=== PATIENT | female | born 1960 | race Caucasian/White ===

== ENCOUNTER → 2023-02-12 | Outpatient (CLI) | payer BC, SELFPAY ==
--- NOTE | 2023-02-12 06:48 | MRI_ITS ---
INDICATION: diplopia with headaches, neck pain, pain entire head EXAMINATION: MRI - MR Brain WO/W Contrast TECHNIQUE: Multiplanar and multisequence MR images of the brain were obtained without and with gadolinium. IV Contrast Dosage and Agent: 15 cc Clariscan. COMPARISON: None. FINDINGS: BRAIN AND EXTRA-AXIAL SPACES: No intracranial mass, mass effect, or midline shift. No enhancing lesion. No hemorrhage, territorial infarct or acute ischemia. Limited foci of T2 signal hyperintensity in the white matter consistent with microvascular ischemia. Ventricles are normal in size. Basal cisterns are unremarkable. SELLA: Pituitary gland is normal in height. AUDITORY SYSTEM: Unremarkable. BONES/JOINTS: Unremarkable. SINUSES: Unremarkable as visualized. Clear. MASTOID AIR CELLS: Unremarkable as visualized. Clear. ORBITS: Unremarkable as visualized. VASCULATURE: Normal flow voids in the major intracranial circulation. MRI/Brain W/WO Contrast IMPRESSION: No acute findings. Trace microvascular ischemic changes. Electronically Signed: Nichole Kilgore MD at 20:31 EDT Reading Location ID and State: [id number] / Tel , Service support ,
== END | disposition home or self-care (01) ==
LOC: MRI 06:47
PROVIDERS: PCP Internal Medicine; Referring Provider Internal Medicine; Visit Provider Internal Medicine
DX: H53.2 Diplopia (principal)
CPT/HCPCS: 70553; A9575

== ENCOUNTER → 2023-06-08 | Outpatient (CLI) | payer BC, SELFPAY ==
--- NOTE | 2023-06-08 13:22 | CT_ITS ---
STUDY: CT BRAIN WITH AND WITHOUT CONTRAST REASON FOR EXAM: Female, 62 years old. Migraine, tinnitus tiffanie -- migraine, tinnitus tiffanie RADIATION DOSAGE (If Supplied By Facility): CTDIvol = ( 44.99 ) mGy, DLP = ( 1547.23 ) mGycm TECHNIQUE: Transaxial CT imaging of the brain was performed pre and post contrast administration. The examination was performed with intravenous administration of IV 50mL Isovue-370. Individualized dose optimization techniques were used for this CT. COMPARISON: None. FINDINGS: Normal soft tissue structures. Normal calvarium. Normal size ventricles and extra-axial spaces for the patient''s age. Normal white matter tracts of the cerebral hemispheres. Normal basal ganglia and thalami. Normal brainstem. Normal cerebellum. There is no intracranial hemorrhage. There are no findings of an acute ischemic infarction. Normal visualized paranasal sinuses. CT/Brain/Head W/WO Contrast IMPRESSION: Normal unenhanced and enhanced CT scan of the brain. Electronically Signed: Andry Seymour MD at 14:04 EST ,
== END | disposition home or self-care (01) ==
LOC: CT 13:20
PROVIDERS: PCP Internal Medicine; Referring Provider Internal Medicine; Visit Provider Internal Medicine
DX: H93.13 Tinnitus, bilateral (principal)
CPT/HCPCS: 70470; Q9967

== ENCOUNTER → 2023-06-28 | Outpatient (CLI) | payer BC, SELFPAY ==
--- NOTE | 2023-06-28 10:21 | BD_ITS ---
STUDY: DUAL ENERGY X-RAY ABSORPTIOMETRY / DXA REASON FOR EXAM: Female, 62 years old. Z780 TECHNIQUE: Bone Mineral Density (BMD) measurements of lumbar spine and bilateral hips were obtained. COMPARISON: None. FINDINGS: Lumbar Spine (L1-L4): g/cm2 (0.850) / T-score (-1.2) / Z-score (0.2) Findings are suggestive of osteopenia with a low fracture risk. Left Femur Total: g/cm2 (0.851) / T-score (-0.7) / Z-score (0.2) Left Femoral Neck: g/cm2 (0.704) / T-score (-1.3) / Z-score (0.0) Right Femur Total: g/cm2 (0.677) / T-score (-1.5) / Z-score (-0.2) Right Femoral Neck: g/cm2 (0.819) / T-score (-1.0) / Z-score (0.0) BD/Dexa Bone Density Study IMPRESSION: The patient is considered osteopenic as outlined below according to World Curtis Organization (WHO) criteria with a low fracture risk. Reference Information: The T-score is the number of standard deviations above or below the standard which is normal for young adults at their peak bone mineral density. The World Health Organization (WHO) interprets the T-scores as follows: Above -1 Normal bone density Between -1 and -2.5 Osteopenia Equal to / or below -2.5 Osteoporosis As a practical clinical guideline, osteopenia may be graded as follows: Mild -1 through -1.5 Moderate -1.6 through -2.0 Severe -2.1 through -2.4 The Z-score is the number of standard deviations above or below age-matched controls. A Z-score of less than -1.5 would be considered abnormal. References: 1. NIH Osteoporosis and Related Bone Diseases www osteo.org 2. International Society for Clinical Densitometry www iscd.org 3. National Osteoporosis Foundation www nof.org Electronically Signed: Andry Seymour MD at 14:24 EST ,
== END | disposition home or self-care (01) ==
LOC: OPBD 10:04
PROVIDERS: PCP Internal Medicine; Referring Provider Internal Medicine; Visit Provider Internal Medicine
DX: Z78.0 Asymptomatic menopausal state (principal)
CPT/HCPCS: 77080

== ENCOUNTER → 2023-09-20 | Outpatient (CLI) | payer BC, SELFPAY ==
--- OUTSIDE RECORDS SUMMARY | 2023-09-10 07:01 | XMS RPT_ITS | CCD ---
Author Name Unknown Address [address] [place] [address] Organization [facility] Care Team Providers Care Chip Washer Name Role Phone NO FAMILY PHYSICIAN, 837 Unavailable Unavail able FREEDMAN, RIC Unavailable Unavailable NO FAMILY PHYSICIAN, 837 Unavailable Unavail able FREEDMAN, RIC Unavailable Unavailable NO FAMILY PHYSICIAN, 837 Unavailable Unavail able FREEDMAN, RIC Unavailable Unavailable NO FAMILY PHYSICIAN, 837 Unavailable Unavail able FREEDMAN, RIC Unavailable Unavailable FREEDMAN, RIC Unavailable Unavailable FREEDMAN, RIC Unavailable Unavailable NO FAMILY PHYSICIAN, 837 Unavailable Unavail able Guille Albrecht Unavailable Unavailable Unavailable MD GUILLE ALBRECHT Primary Care Unavailable MD GUILLE ALBRECHT Referring Unavailable MD GUILLE ALBRECHT Attending Unavailable MD GUILLE ALBRECHT Referring Unavailable MD GUILLE ALBRECHT Attending Unavailable MD GUILLE ALBRECHT Primary Care Unavailable Bianca Alba MD Unavailable [phone] Slarb PAPER CUP HANDLE MACHINE OPERATOR, Melody Unavailable Unavailable Unavailable Unavailable Allergies Allergy Classification Reported Allergen(s) Allergy Type Date of Onset Reaction(s) Facility (2 sources) Penicillins; Translations: [Penicillins] Allergy to drug (finding) [facility] Work Phone: (3 sources) Penicillin Drug Allergy Vomiting [facility] Work Phone: Medications Completed/Discontinued Medications Medication Drug Class(es) Dates Sig (Normalized) Sig (Original) azithromycin 250 mg oral tablet (2 sources) Macrolide Antimicrobial Start: 10-19-2014 Azithromycin 250 MG Oral Tablet TAKE 2 TABLETS ON DAY 1 THEN TAKE 1 TABLET A DAY FOR 4 DAYS. Quantity: 6 Refills: 0 Ordered: 19-Oct-2014 Viola Finch MD Start : 19-Oct-2014 Active rimegepant 75 mg disintegrating oral tablet (3 sources) Start: 01-26-2023 take 1 tablet by mouth every other day Nurtec ODT 75 mg oral Tablet,disintegra ting 1 Tablet every other day;migraine headache for 0 days Quantity: 10 {Tablet} Refills: 0 Ordered: 26-Jan-2023 Bianca Alba MD Start : 26-Jan-2023 Active Problems Active Problems Problem Classification Problem Date Documented Da te Episodic/Chronic Blindness and vision defects (9 sources) Diplopia; Translations: [Diplopia] 01-29-2023 Episodic Headache; including migraine (6 sources) Migraine; Translations: [Migraine] 01-26-2023 Chronic Past or Other Problems Problem Classification Problem Date Documented Da te Episodic/Chronic Unclassified (3 sources) 1 live -vaginal 01-26-2023 Unclassified (3 sources) Results Test Name Value Interpretation Reference Range Facil ity Vital Signs Date Time Vital Sign Value Performing Clinician Facility 01-26-2023 07:10-0400 Body height 157.48 cm Melody Coffey LPN [facility] Work Phone: 01-26-2023 07:10-0400 Body mass index (BMI) [Ratio] 31.82 kg/m2 Melody Coffey LPN [facility] Work Phone: 01-26-2023 07:10-0400 Body surface area Derived from formula 1.8 m2 Melody Coffey LPN [facility] Work Phone: 01-26-2023 07:10-0400 Body temperature 97.7 [degF] Melody Coffey LPN [facility] Work Phone: Encounters Encounter Date Encounter Type Care Provider Facility Start: 01-30-2023 Review Bianca Singh Work Phone: [facility] Start: 01-29-2023 End: 01-29-2023 Annotation/Addendum Bianca Alba MD Work Phone: [facility] Start: 01-26-2023 End: 01-26-2023 Office outpatient visit 25 minutes Bianca Alba MD Work Phone: [facility] Start: 09-18-2022 ambulatory MD GUILLE Bryan ility:[id number] Start: 05-23-2022 Initial preventive medicine new patient 40-64yrs Guille Albrecht Work Phone: [facility] Work Phone: Start: 05-23-2022 ambulatory MD GUILLE ALBRECHT Fac ility:[id number] Start: 02-27-2018 End: 02-28-2018 Patient encounter RIC FREEDMAN Facility:[id number] Start: 02-26-2018 End: 02-27-2018 Patient encounter RIC FREEDMAN Facility:[facility] Start: 02-26-2018 End: 02-27-2018 Patient encounter RIC FREEDMAN Facility:[id number] Start: 09-24-2017 Patient encounter [id number] NO FAMIL Y PHYSICIAN Facility:[facility] Procedures Date Procedure Procedure Detail Performing Clinician Start: 02-12-2023 End: 02-12-2023 Brain W/WO Contrast Procedure Note: See Note; NOTES: [facility] Imaging Services [address] [place] [address] Brain W/WO Contrast MR#: [id number] Acct: [id number] Name: ORACIO SALCIDO Rep #: [id number] : 1960 F 62 From: Nichole bobby MD PCP: Dr. Bianca Alba MD Status: REG CLI Study: Brain W/WO Contrast Date of Exam: 02/12/23 Exam# [id number] Ordering Dr: Bianca Alba MD INDICATION: diplopia with headaches, neck pain, pain entire head EXAMINATION: MRI - MR Brain WO/W Contrast TECHNIQUE: Multiplanar and multisequence MR images of the brain were obtained without and with gadolinium. IV Contrast Dosage and Agent: 15 cc Clariscan. COMPARISON: None. FINDINGS: BRAIN AND EXTRA-AXIAL SPACES: No intracranial mass, mass effect, or midline shift. No enhancing lesion. No hemorrhage, territorial infarct or acute ischemia. Limited foci of T2 signal hyperintensity in the white matter consistent with microvascular ischemia. Ventricles are normal in size. Basal cisterns are unremarkable. SELLA: Pituitary gland is normal in height. AUDITORY SYSTEM: Unremarkable. BONES/JOINTS: Unremarkable. SINUSES: Unremarkable as visualized. Clear. MASTOID AIR CELLS: Unremarkable as visualized. Clear. ORBITS: Unremarkable as visualized. VASCULATURE: Normal flow voids in the major intracranial circulation. MRI/Brain W/WO Contrast IMPRESSION: No acute findings. Trace microvascular ischemic changes. Electronically Signed: Nichole Kilgore MD at 20:31 EDT Reading Location ID and State: [id number] / Tel , Service support , CC: Dr. Bianca Alba MD Cardiopulmonary Technologist: Signed Bianca Alba MD Work Phone: Arthrocent[facility] Of Ganglion Cyst Of Wrist Guille Albrecht Work Phone: Back Surgery Guille gaston Work Phone: Ganglion cyst Melody Alexx L PN Hand Incision Tendon Sheath Of A Finger Guille Albrecht Work Phone: Rectal Surgery Repai r Of Perirectal Fistula Guille Albrecht Work Phone: Spinal arthrodesis Melody Avina arb PAPER CUP HANDLE MACHINE OPERATOR Trigger finger x 2 Melody Avina arb PAPER CUP HANDLE MACHINE OPERATOR Plan of Treatment Date Care Activity Detail Author Start: 01-26-2023 Procedure Education Eprescribed prescriptions (G8553) [facility] Work Phone: [facility] Work Phone: [facility] Work Phone: Immunizations Immunization Date Immunization Notes Care Provider Fa cility 10-20-2021 tetanus toxoid, redu monique diphtheria toxoid, and acellular pertussis vaccine, adsorbed Guille Albrecht Work Phone: [facility] Work Phone: 03-26-2014 influenza, seasonal, injectable Guille Albrecht Work Phone: [facility] Work Phone: Payers Date Payer Category Payer Unknown [id number] [id number] 1960 Unknown [id number] Unknown Unknown [id number] Unknown [id number] Social History Date Type Detail Facility Former smoker Former smoker [facility] Work Phone: Progress note 10-06-2020 Note Date & Type Note Facility 10-06-2020 Note HNO ID: [id number] Author: Rita Arteaga Service: ? Author Type: Physician Type: Progress Notes Filed: 10/07/2020 9:32 AM Note Text: Follow-up Visit Patient: Oracio Salcido 81.3 kg (179 lb 3.2 oz) 157.5 cm (5' 2 ) Body mass index is 32.78 kg/m?. RMR can't be calculated - Weight unrecorded in last 120 days. Waist measurement: No waist measurement recorded. BP: 109/60 ALLERGIES Allergen Reactions - Beta Blockers [Beta* Other: See Comments Please avoid beta blockers while on allergy shots - Penicillins vomiting Current Outpatient Medications on File Prior to Visit Medication Sig - Ketoconazole (bulk) 7.5 mg (CPD) Fluconazole 7.5mg/ml 1 squirt to each nare twice per day - Jjsm-Clwy-XJ ([employer]) Take 1 capsule, 2 times daily with 4 oz or more of water. - Activated Charcoal ([employer]) 1capsules, 2 times daily - Estradiol (VAGIFEM) 10 mcg vaginal tablet Use 1 tablet vaginally two times a week. INTO LOWER 1/3 OF VAGINA TWICE A WEEK. - Homocysteine [place] (POPRAGEOUS for DrivenBI) Take 2 capsules by mouth daily with food. - One [place] (Pure Encapsulation) -- fish oil Take 2 capsules by mouth daily with food. - Choleast 600mg (Nilson) Take 2 capsules by mouth once daily. - albuterol sulfate 90 mcg/actuation aepb 2 puffs as needed when short of breath - Magnesium Glycinate (Pure Encapsulations) Take 4 capsules daily - Multi t/d 60 ct. (Pure Encapsulations) Take 1 capsule by mouth twice daily with meals. - Vitamin D [place] (ditlo) Take 1 capsule by mouth daily with food. No current facility-administered medications on file prior to visit. PAST MEDICAL HISTORY Diagnosis Date - Asthma albuterol as needed - BMI 31.0-31.9,adult 09/13/2017 - Mixed hyperlipidemia 09/13/2017 PAST SURGICAL HISTORY Procedure Laterality Date - HAND SURGERY HX trigger finger and ganglion cyst -- bilateral - SPINAL FUSION,ANT,EA ADNL LEVEL 04/11 Social History Tobacco Use - Smoking status: Former Smoker Quit date: 06/01/2010 Years since quittin.3 - Smokeless tobacco: Never Used Vaping Use - Vaping Use: Never used Substance Use Topics - Alcohol use: Yes - Drug use: Not Currently Functional Medicine Timeline PROMIS: PROMIS Scale T-Scores -- HIGHER SCORES BETTER PROMIS Global Health - (T-Scores - the mean of general population = 50. Five points is a clinically meaningful difference.) 03/12/2020 05/25/2020 10/04/2020 Physical T-Score 50.8 47.7 47.7 Mental T-Score 48.3 45.8 53.3 Depression Screening: PHQ-9 08/19/2019 12/17/2019 05/25/2020 Score 4 2 1 PHQ-9 Self Harm 08/19/2019 12/17/2019 05/25/2020 Question 9 Not at all Not at all Not at all PHQ-9 Self-Harm (Item 9) response options: 0 Not at all 1 Several days 2 More than half the days 3 Nearly every day PHQ-9 Levels: 0-4 Minimal depression 5-9 Mild depression 10-14 Moderate depression 15-19 Moderately severe depression 20-27 Severe depression Subjective: 10/05/2020 59 yo f with cholesterol, menopause, pansinusitis for follow up. She recently went to [place] and enjoyed it. She came home and quit her job. She feels wonderful!! She has started a new job working at [employer] in [place]. She loves her new job. The mold exposure was from work that she left so will repeat levels. She has chest pain at rest. When she first retired bp was high but now it is very well controlled at 110-120/70 ? Subjective: 03/17/2020 59 YO f with cholesterol, menopause, pansinusitis for follow up. She has used many things for her sinuses: begs, argentyn, EDTA/silver with jimbo and charcoal. With the EDTA/Silver she had a lot of drainage but still congestion continued but had severe rhinorrhea. She has developed vertigo with this. It is momentary and multiple times. 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 Subjective:? 03/17/20 59 yo f with cholesterol, menopause for follow up. ?She saw gyne and was place on vaginal estrogen and a low dose catapres for hot flashes every 2 hours at night and during the day they can vary b/c of AC. She use wellbutrin in the past and it gave her crazy dreams. ?No change with estrovera. ENT did not like FM and pt was offended by the visit. ??Was given cipro for the marcon's. ?It dried her up but did not stop the drainage. ?She has the EDTA from [place]. ?She did fall this summer and will be seeing ortho. ?She also has hip pain on her right side. ?She has pain with movement. Nasal congestion: bets, colloidal silver, lugols iodine has not helped. ? ? ? Subjective:? 12/24/19 59?yo f with cholesterol, menopause for follow up. 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 ?She had to do 10 hour days with one dayoff and (more content not included)... 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 Here for Mammogram order and breast exam.Oracio is a 61 year old female presenting today as new patient to establish care.-Feels well, no specific complaints or concerns-Requests order for a mammogram.-Was attending functional medicine at [facility] but her insurance no longer covers that.-She has not seen a primary physician in 7 years, last one was Dr. 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 Here for Mammogram order and breast exam.Oracio is a 61 year old female presenting today as new patient to establish care.-Feels well, no specific complaints or concerns-Requests order for a mammogram.-Was attending functional medicine at [facility] but her insurance no longer covers that.-She has not seen a primary physician in 7 years, last one was Dr. Finch.-Last had blood work done in September 2019.-Has lost 15 lbs since 03/09/22.-FH: Mother with macular degeneration.had recent colonoscopy and EGDh/o Souza's esophagus and hiatal hernia [facility] Work Phone: Instructions Note Date & Type Note Facility [facility] Work Phone: Instructions Note Date & Type Note Facility [facility] Work Phone: Instructions Note Date & Type Note Facility [facility] Work Phone: Summary Purpose Family History Unknown Family Member Name Dates Details Family history of malignant neoplasm of breast: Mother(V16.3, Z80.3) Status:Active Family history of stroke: Gr andmother(V17.1, Z82.3) Status:Active Family history of colon canc er: Brother(V16.0, Z80.0) Status:Active Unknown Family Member Name Dates Details Family history of malignant neoplasm of breast: Mother(V16.3, Z80.3) Status:Active Family history of stroke: Gr andmother(V17.1, Z82.3) Status:Active Family history of colon canc er: Brother(V16.0, Z80.0) Status:Active Unknown Family Member Name Dates Details Maternal Grandfather Comments:macular degeneratio n Status:Active Maternal Grandmother Comments:pacemaker, macular degeneration Status:Active Mother Comments:IA, breast cancer, skin cancer Status:Active Unknown Family Member Name Dates Details Maternal Grandfather Comments:macular degeneratio n Status:Active Maternal Grandmother Comments:pacemaker, macular degeneration Status:Active Mother Comments:IA, breast cancer, skin cancer Status:Active Unknown Family Member Name Dates Details Maternal Grandfather Comments:macular degeneratio n Status:Active Maternal Grandmother Comments:pacemaker, macular degeneration Status:Active Mother Comments:IA, breast cancer, skin cancer Status:Active Advance Directives No Advanced Directives Records FoundNo Advanced Directives Records FoundNo Advanced Directives Records FoundNo Advanced Directives Records FoundNo Advanced Directives Records FoundNo Advanced Directives Records Found Additional Source Comments INFORMATION SOURCE (unrecogn ized section and content) DATE CREATED AUTHOR AUTHOR'S ORGANIZ ATION 03/03/2018 [facility] DATE CREATED AUTHOR AUTHOR'S ORGANIZ ATION 04/16/2020 [facility] DATE CREATED AUTHOR AUTHOR'S ORGANIZ ATION 08/05/2021 [facility] DATE CREATED AUTHOR AUTHOR'S ORGANIZ ATION 05/26/2022 [facility] DATE CREATED AUTHOR AUTHOR'S ORGANIZ ATION 10/01/2022 [facility] FOR RECORDS PERTAINING TO PATIENTS WHO ARE OR HAVE BEEN ENROLLED IN A CHEMICAL DEPENDENCY/SUBSTANCEABUSE PROGRAM, SOME INFORMATION MAY BE OMITTED. This clinical summary was aggregated from multiple sources. Caution should be exercised in using it in the provision of clinical care. This summary normalizes information from multiple sources, and as a consequence, information in this document may materially change the coding, format and clinical context of patient data. In addition, data may be omitted in some cases. CLINICAL DECISIONS SHOULD BE BASED ON THE PRIMARY CLINICAL RECORDS. [employer] provides no warranty or guarantee of the accuracy or completeness of information in this document.
--- OUTSIDE RECORDS SUMMARY | 2023-09-20 07:16 | XMS RPT_ITS | CCD ---
Author Name Unknown Address [address] [place] [address] Organization [facility] Care Team Providers Care Shank Cutter Name Role Phone NO FAMILY PHYSICIAN, [phone] [...] Primary Care Unavailable Bianca Alba MD Unavailable [phone] [place] PREMIX OPERATOR CONCENTRATE, Melody Unavailable Unavailable Unavailable Unavailable Allergies Allergy Classification Reported Allergen(s) Allergy Type Date of Onset Reaction(s) Facility (2 sources) Penicillins; Translations: [Penicillins] Allergy to drug (finding) [facility] Work Phone: (3 sources) Penicillin [...] Medicine Start: 09-18-2022 ambulatory MD GUILLE Bryan ility:[id number] Start: 05-23-2022 Initial preventive medicine new patient 40-64yrs Guille Albrecht Work Phone: [facility] Work Phone: Start: 05-23-2022 ambulatory MD GUILLE ALBRECHT Fac ility:[id number] Start: 02-27-2018 End: 02-28-2018 Patient encounter RIC FREEDMAN Facility:[id number] Start: 02-26-2018 End: 02-27-2018 Patient encounter RIC FREEDMAN Facility:[facility] Start: 02-26-2018 End: 02-27-2018 Patient encounter RIC FREEDMAN Facility:[id number] Start: 09-24-2017 Patient encounter [id number] NO FAMIL Y PHYSICIAN Facility:[facility] Procedures Date Procedure Procedure Detail Performing Clinician Start: 02-12-2023 End: 02-12-2023 Brain W/WO Contrast Procedure Note: See Note; NOTES: [facility] Imaging Services [address] [place] [address] Brain W/WO Contrast MR#: [id number] Acct: [id number] Name: ORACIO SALCIDO Rep #: [id number] : 1960 F 62 From: Nichole bobby MD PCP: Dr. Bianca Alba MD Status: REG CLI Study: Brain W/WO Contrast Date of Exam: 02/12/23 Exam# [id number] Ordering Dr: Bianca Alba MD INDICATION: diplopia [...] support , CC: Dr. 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: Signed Bianca Alba MD Work Phone: Arthrocentesis Aspir ation Of Ganglion Cyst Of Wrist Guille Albrecht Work Phone: Back Surgery Guille gaston Work Phone: Ganglion cyst Melody Alexx L PN Hand Incision Tendon Sheath Of A Finger Guille Albrecht Work Phone: Rectal Surgery Repai r Of Perirectal Fistula Guille Albrecht Work Phone: Spinal arthrodesis Melody Avina arb PREMIX OPERATOR CONCENTRATE Trigger finger x 2 Melody Avina arb PREMIX OPERATOR CONCENTRATE Plan of Treatment Date Care Activity Detail [...] pertussis vaccine, adsorbed Guille Albrecht Work Phone: [facility] Work Phone: 03-26-2014 influenza, seasonal, injectable Guille Albrecht Work Phone: [facility] Work Phone: Payers Date Payer Category Payer Unknown [id number] 1960 Unknown [id number] Unknown Unknown [id number] Unknown [id number] Social History Date Type Detail Facility Former smoker Former smoker [facility] Work Phone: Progress note 10-06-2020 Note Date & Type Note Facility 10-06-2020 Note HNO ID: [id number] Author: Rita Arteaga Service: ? Author Type: [...] to each nare twice per day - Mret-Gmch-FP (Codenomicon) Take 1 capsule, 2 times daily with 4 oz or more of water. - Activated Charcoal ([employer]) 1capsules, 2 times daily - Estradiol (VAGIFEM) 10 mcg vaginal tablet Use 1 tablet vaginally two times a week. INTO LOWER 1/3 OF VAGINA TWICE A WEEK. - Homocysteine [place] ([email or web address]) Take 2 capsules by mouth daily with food. - One Flowood (Pure Encapsulation) -- fish oil Take 2 [...] twice daily with meals. - Vitamin D [place] ([employer]) Take 1 capsule by mouth daily with [...] for follow up. She recently went to [place] and enjoyed it. She came home and quit her job. She feels wonderful!! She has started a new job working at [employer] in [place]. She loves her new job. The mold [...] house is fine She had done the [place] test; she declines hrt but wants to [...] the drainage. ?She has the EDTA from [place]. ?She did fall this summer and will [...] one dayoff and (more content not included)... 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 Here for Mammogram order and breast exam.Oracio is a 61 year old female presenting today as new patient to establish care.-Feels well, no specific complaints or concerns-Requests order for a mammogram.-Was attending functional medicine at [facility] but her insurance no longer covers that.-She has not seen a primary physician in 7 years, last one was Dr. 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 Here for Mammogram order and breast exam.Oracio is a 61 year old female presenting today as new patient to establish care.-Feels well, no specific complaints or concerns-Requests order for a mammogram.-Was attending functional medicine at [facility] but her insurance no longer covers that.-She has not seen a primary physician in 7 years, last one was Dr. Finch.-Last had blood work done in September 2019.-Has lost 15 lbs since 03/09/22.-FH: Mother with macular degeneration.had recent colonoscopy and EGDh/o Souza's esophagus and hiatal hernia [facility] Work Phone: Instructions Note Date [...] Maternal Grandmother Comments:pacemaker, macular degeneration Status:Active Mother Comments:[place], breast cancer, skin cancer Status:Active Unknown Family Member Name Dates Details Maternal Grandfather Comments:macular degeneratio n Status:Active Maternal Grandmother Comments:pacemaker, macular degeneration Status:Active Mother Comments:[place], breast cancer, skin cancer Status:Active Unknown Family Member Name Dates Details Maternal Grandfather Comments:macular degeneratio n Status:Active Maternal Grandmother Comments:pacemaker, macular degeneration Status:Active Mother Comments:[place], breast cancer, skin cancer Status:Active Advance Directives No Advanced Directives Records FoundNo Advanced Directives Records FoundNo Advanced Directives Records FoundNo Advanced Directives Records FoundNo Advanced Directives Records FoundNo Advanced Directives Records Found Additional Source Comments INFORMATION SOURCE (unrecogn ized section and content) DATE CREATED AUTHOR AUTHOR'S ORGANIZ ATION 03/03/2018 [facility] DATE CREATED AUTHOR AUTHOR'S ORGANIZ ATION 04/16/2020 [facility] DATE CREATED AUTHOR AUTHOR'S ORGANIZ ATION 08/05/[address] [facility] DATE CREATED AUTHOR AUTHOR'S ORGANIZ ATION 05/26/2022 [facility] DATE CREATED AUTHOR AUTHOR'S ORGANIZ ATION 10/01/2022 [facility] FOR RECORDS PERTAINING TO PATIENTS WHO ARE [...] BE BASED ON THE PRIMARY CLINICAL RECORDS. [employer] provides no warranty or guarantee of the accuracy or completeness of information in this document.
--- NOTE | 2023-09-20 07:17 | BI_ITS ---
MAMMOGRAPHY - BILATERAL SCREENING REASON FOR EXAM: Female, 62 years old. Routine annual screening examination. PERTINENT HISTORY: Mother with breast cancer. TECHNIQUE: Digital bilateral breast alfonso (3D mammographic acquisition) in the CC and MLO projections. 2-D mediolateral oblique (MLO) and craniocaudad (CC) views of both breasts were obtained. CAD: Full Field Digital Mammography with Computer Added Detection was performed. COMPARISON: Comparison is made with prior outside examination of September 18, 2022. FINDINGS: Breast Composition: There are scattered areas of fibroglandular density. There are no dominant masses or suspicious calcifications. Stable bilateral fat containing axillary lymph nodes. No other significant abnormalities are identified. There has been no significant change since the prior study. BI/SCRN MAMM (CAD)W/ALFONSO BILAT IMPRESSION: Stable bilateral screening mammogram. Yearly follow-up mammogram recommended. (A) ASSESSMENT CATEGORY: BIRADS Category 2: Benign. A letter regarding these results will be sent to the patient by the facility within 30 days. Approximately 10% of breast cancers are not detected by mammography. A normal mammogram should not delay biopsy of a clinically suspicious abnormality. [id number] Electronically Signed: Andry Seymour MD at 8:35 EDT ,
== END | disposition home or self-care (01) ==
LOC: OPBI 07:14
PROVIDERS: PCP Internal Medicine; Referring Provider Internal Medicine; Visit Provider Internal Medicine
DX: Z12.31 Encounter for screening mammogram for malignant neoplasm of breast (principal)
CPT/HCPCS: 77063; 77067